=== PATIENT | female | born 1950 | race Caucasian/White ===

== ENCOUNTER 2023-10-10 12:08 | Emergency (ER) | payer MEDICARE, SELFPAY ==
[2023-10-10 12:09] VITALS: BP 182/109
--- NOTE | 2023-10-10 13:47 | ED.MUSCINJ ---
HPI-Injury
General
Chief Complaint: Extremity Pain (non-traumatic)
Source: patient and family
Exam Limitations: none
Time Seen by Provider: 10/10/23 13:39
Nursing documentation reviewed up to this point in time: agreed with
History of Present Illness-Injury
Initial Injury comments:
73-year-old female is here for severe intermittent electric shock like left calf pains that started 10 days ago and becoming worse. The pains come every few seconds frequently. She cannot walk today due to the pain. The calf is also swollen.
Patient has a history of HTN, DVT 2 years ago in the opposite leg, her doctor prescribed her Xarelto but she never took it. She denies chest pain or shortness of breath.
Past History
Past History
ED Past Medical History: Cancer (Right breast cancer 2017) and HTN
ED Past Surgical History: Orthopedic and Other (Varicose vein stripping's)
Social History
Tobacco: Non-smoker
Alcohol: None
Living: other (Pt visiting from [place])
Review of Systems
Review of Systems
Allergies reviewed?: Yes
All Other Systems: ROS reviewed and negative except as documented in HPI and ROS
Constitutional: Denies fever
Respiratory: Denies trouble breathing
Cardiac: Denies chest pain
Musculoskeletal: Reports other (pain, swelling left calf)
Skin: Reports no symptoms
Phy Exam
Physical Exam
Physical Exam:
GENERAL: No acute distress. A&Ox3.
CONSTITUTIONAL: Afebrile.
RESPIRATORY: Regular respirations, nonlabored, lungs clear.
CARDIOVASCULAR: Regular rate and rhythm, no murmurs, no rubs.
GI: Soft, nontender, normal BS
MUSCULOSKELETAL: Right calf is +1 swollen compared to the left, exquisitely tender to palpation, no erythema or warmth. Full range of motion. Distal neurovascular intact. Moves with ease. Well perfused.
SKIN: Warm, dry, pink
PSYCH: Normal mood and affect. Well kept, interactive and appropriate
NEUROLOGIC: Awake, alert and oriented. No focal neurological deficits
Injury Course
Orders/Labs/Results
Orders:
Orders
10/10/23 13:46
Acetaminophen [Tylenol] 1,000 mg PO NOW STA
US Periph Venous LOWER Ext LT Urgent
Comment:
Reason For Exam: calf pain
MDM/Problems Addressed
Differential Diagnosis Includes:
DVT, muscle spasm, claudication
MDM/Problems Addressed:
73-year-old female is here for severe intermittent electric shock like left calf pains that started 10 days ago and becoming worse. The pains come every few seconds frequently. She cannot walk today due to the pain. The calf is also swollen.
Patient has a history of HTN, DVT 2 years ago in the opposite leg, her doctor prescribed her Xarelto but she never took it. She denies chest pain or shortness of breath.
Patient continues with intermittent severe pains in the left calf causing her to cry out with pain and constantly move her legs around, episodes lasting seconds to several minutes.
3:40 PM:
Ultrasound LLE negative for DVT.
Pt has been pain free since initial arrival pain
Not claudication, pain occurs only at rest, improves if she gets up and walks around
OOB and ambulating well\\
Stable for discharge
*Critical Care Note
Total Time (30-74mins, 75-104mins- exclusive of procedures): Not Applicable
ED Attending Note
-
Portions of this chart may have been created with voice recognition software.� Occasional wrong word or��sound alike� substitutions may have occurred due to the inherent limitations of voice recognition software.
Discharge Plan
Departure
Patient Disposition: Home (Routine Discharge)
Date of Disposition: 10/10/23
Time of Disposition: 15:43
Patient with high blood pressure during this ER visit?: No
Condition: Good
Discharge Problem:
Calf cramp
Instructions: Nocturnal (Nighttime) Leg Cramps (DC), Muscle spasms (muscle cramps)
Referrals:
Ethan Garibay [Other] - Call in 1-3 days for appt
NONE,* [Family Provider] -
Activity Restrictions/Additional Instructions:
As we discussed, your Ultrasound is negative for DVT or clot.
You have no sign of circulation problem to the leg.
Follow up with your doctor in 2 weeks for repeat ultrasound.
Interventions
Interventions:
*Risk Screen - Suicide Last Done: 10/10/23 14:03
*General Assessment Last Done: 10/10/23 14:03
*Neglect/Abuse Screening Last Done: 10/10/23 14:03
ED- Fall Risk Assessment Last Done: 10/10/23 14:03
*Nursing Disposition Last Done: 10/10/23 15:56
ED-Skin Assessment Last Done: 10/10/23 14:03
ED-Peripheral Vascular Assessment Last Done: 10/10/23 14:03
ED-Musculoskeletal Assessment Last Done: 10/10/23 14:03
Discharge Date and Time
Discharge Date/Time: 10/10/23 15:57
Print Language: ARMENIAN
[2023-10-10] MEDS: TYLENOL 1000 MG PO (13:53)
[2023-10-10 15:05] VITALS: BP 162/84
== END 2023-10-10 15:57 | disposition home or self-care (01) ==
LOC: EMR 12:08
PROVIDERS: EMERGENCY PHYSICIAN Emergency Medicine
DX: M79.662 Pain in left lower leg (principal); I10 Essential (primary) hypertension; Z86.718 Personal history of other venous thrombosis and embolism
CPT/HCPCS: 93971; 99284